=== PATIENT | male | born 1950 | race African-American/Black ===

== ENCOUNTER 2023-06-11 04:15 | Day surgery (SDC) | payer MEDICARE, OTHER ==
[~2023-06-11 04:15] MED LIST: ceFAZolin SODIUM 1 GM VIAL IVPB ONE
[2023-06-11 11:37] VITALS: BMI 18.6
[2023-06-11] MEDS ORDERED: MIDAZOLAM HCL 2 MG/2 ML SINGLE DOSE VIAL ONE (12:36)
[2023-06-11] MEDS ORDERED: PROPOFOL 20 ML ONE (12:36)
[2023-06-11] MEDS ORDERED: ceFAZolin SODIUM 1 GM VIAL IVPB ONE (13:28)
[2023-06-11] MEDS ORDERED: ONDANSETRON 4 MG/2 ML VIAL IVPUSH PRN (14:27)
[2023-06-11] MEDS ORDERED: oxyCODONE HCL 5 MG TABLET PO PRN (14:27)
[2023-06-11] MEDS ORDERED: LACTATED RINGERS SOLUTION 1,000 ML IV SCH (14:30)
[2023-06-11 15:56] VITALS: RESP 16
[2023-06-11 16:53] VITALS: BP 175/98; PULSE 84; TEMP 97.8
== END 2023-06-11 16:30 | disposition home or self-care (01) ==
LOC: JASU-SURG 04:15 → EDSEX 13:00 → JASU-SURG 16:30
PROVIDERS: ATTEND Urology
PROC: 0V503ZZ Destruction of Prostate, Percutaneous Approach (ICD-10-PCS; principal; 2023-06-11 13:00)
DX: C61 Malignant neoplasm of prostate (principal)
CPT/HCPCS: 55873; C2618; 71046-TC-FY; 93005; 93010; 94760; C1769